=== PATIENT | male | born 2000 | race Caucasian/White ===

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

== ENCOUNTER 2020-01-05 15:32 | Emergency (ER) | payer MEDICAID ==
[2020-01-05 15:38] VITALS: BP 125/72
--- NOTE | 2020-01-05 15:50 | ER Document Report ---
HPI - HPI Patient complains to provider of: Medication refill Time Seen by Provider: 01/05/20 15:42 Onset: This morning Onset/Duration: Gradual Pain Level: 0 Context: Patient states he has a history of ADHD and used to take Adderall. Patient states he has been off this medication for several years but would like to restart it. Patient presents today as he is here with a friend who also checked into the ER. Patient denies any other complaints at this time. Associated Symptoms: None Exacerbated by: Denies Relieved by: Denies Similar symptoms previously: Yes Recently seen / treated by doctor: No - ROS ROS below otherwise negative: Yes Systems Reviewed and Negative: Yes All other systems reviewed and negative - DERM Skin Color: Normal Skin Problems: None Past Medical History - General Information source: Patient - Social History Smoking Status: Never Smoker Chew tobacco use (# tins/day): No Frequency of alcohol use: None Drug Abuse: None Occupation: None Lives with: Family Family History: Reviewed & Not Pertinent Patient has homicidal ideation: No Renal/ Medical History: Denies: Hx Peritoneal Dialysis Psychiatric Medical History: Reports: Hx Attention Deficit Hyperactivity Disorder Surgical Hx: Negative Vertical Provider Document - CONSTITUTIONAL Agree With Documented VS: Yes Exam Limitations: No Limitations General Appearance: WD/WN, No Apparent Distress - INFECTION CONTROL TRAVEL OUTSIDE OF THE [place] IN LAST 30 DAYS: No - HEENT HEENT: Atraumatic, Normocephalic - NECK Neck: Normal Inspection, Supple. negative: Lymphadenopathy-Left, Lymphadenopathy-Right - RESPIRATORY Respiratory: Breath Sounds Normal, No Respiratory Distress - CARDIOVASCULAR Cardiovascular: Regular Rate, Regular Rhythm - BACK Back: Normal Inspection - MUSCULOSKELETAL/EXTREMETIES Musculoskeletal/Extremeties: MAEW - NEURO Level of Consciousness: Awake, Alert, Appropriate Motor/Sensory: No Motor Deficit - DERM Integumentary: Warm Course - Re-evaluation Re-evalutation: 01/05/20 15:52 Patient presents requesting to be started back on Adderall after having been off this medication for several years. Patient states he had been on this medication to treat his ADHD. Patient encouraged to see his primary doctor or a mental health professional to get restarted on this medication. Patient denies any other complaints at this time. - Vital Signs Vital signs: Temp Pulse Resp BP Pulse Ox 98.0 F 55 L 18 125/72 100 01/05/20 15:37 01/05/20 15:37 01/05/20 15:37 01/05/20 15:37 01/05/20 15:37 Discharge - Discharge Clinical Impression: ADHD Qualifiers: Attention deficit-hyperactivity disorder type: unspecified Qualified Code(s): F90.9 - Attention-deficit hyperactivity disorder, unspecified type Condition: Stable Disposition: HOME, SELF-CARE Additional Instructions: Return immediately for any new or worsening symptoms Followup with your primary care provider, call tomorrow to make a followup appointment Your primary doctor to make a referral to you to a mental health provider who can refill your medications and better manage your ADHD Referrals: [facility] [Provider Group] - Follow up as needed
== END 2020-01-05 15:50 | disposition home or self-care (01) ==
LOC: ER 15:32
DX: F90.9 Attention-deficit hyperactivity disorder, unspecified type (principal)
CPT/HCPCS: 99282